=== PATIENT | male | born 1955 | race Caucasian/White ===

== ENCOUNTER 2021-06-02 13:51 | Outpatient (REF) | payer MEDICARE, MEDICAID, SELFPAY ==
--- NOTE | 2021-06-04 09:00 | MHC.AU.ANO ---
Adult Audiological Evaluation Date of Visit: 06/02/21 Reason for Appointment: Patient feels that he hears well overall in most situations, but has started to notice hearing difficulty in a few settings. He has difficulty hearing the television, particularly if he is laying down on his side. He has also noticed difficulty is someone is talking softly/whispering. Ear History: Ear Deformity: None Reported Recent Ear Drainage: None Reported Recent Ear Pain: None Reported Family History of Hearing Loss?: Yes Recent Ear Infections: None Reported Ear Infections in Childhood: None Reported History of Ear Wax Buildup: None Reported Previous Ear Surgery: None Reported Bothersome Tinnitus/Ringing/Noises in Ears: None Reported Ear used on the phone: Right Ear Blocked/Full Sensation in Ear(s): None Reported History of occupational noise exposure?: Yes: [employer]- 20 Years History: No Medical History: Medical History: Hypertension, Deviated Septum Otoscopy: Right Ear: Unremarkable Left Ear: Unremarkable Tympanometry: Tympanometry performed due to: To assess integrity of the middle ear system Right Ear: Normal Middle Ear System (Type A) Left Ear: Normal Middle Ear System (Type A) Hearing Evaluation: Transducer(s) Used: Insert Earphones Method: Conventional Audiometry Stimuli Used: Pure Tones Right Ear: Description of Hearing: Normal from 250-2000 Hz, notch to moderate/moderately-severe sensorineural hearing loss around 4000 Hz, and rising to normal by 8000 Hz Left Ear: Description of Hearing: Normal from 250-2000 Hz, notch to moderate/moderately-severe sensorineural hearing loss around 4000 Hz, and rising to normal by 8000 Hz Speech Recognition Threshold (SRT): Method Used: Recorded Lists Stimuli Used: Spondee Words Right Ear: 10 dBHL Left Ear: 15 dBHL Word Discrimination: Method: Recorded Lists Word Lists Used: W-22 Right Ear: 96% at 55 dBHL Left Ear: 96% at 50 dBHL Most Comfortable Level (MCL): Right Ear: 55 dBHL Left Ear: 50 dBHL Interpretation of Results: Patient presents with a moderate/moderately-severe sensorineural notch around 4000 Hz bilaterally. Notches in this frequency range are commonly seen in individuals who have a history of noise exposure. At this time, the hearing loss likely does not have too strong of an impact on his daily communication, as most frequencies are still within normal range. There may be a few consonant sounds that are more difficult to hear, such as /f/, /s/, and /th/. This can lead to occasional misunderstandings or a feeling that certain sounds do not seem as clear as they used to be. Hearing aids are not yet warranted. Recommendations: Audiological re-evaluation in 2 years, or sooner if changes are noted. Continued use of hearing protection when around loud noises. Diagnosis: Primary Diagnosis: H90.3 Bilateral Sensorineural Hearing Loss Signature: Provider: Alondra Vega, CCC-A
== END 2021-06-02 13:52 | disposition home or self-care (01) ==
LOC: HO.SH 13:51
PROVIDERS: Visit Provider Internal Medicine
DX: H90.3 Sensorineural hearing loss, bilateral (principal)
CPT/HCPCS: 92557; 92567

== ENCOUNTER 2023-08-13 09:34 | Outpatient (REF) | payer MEDICARE, MEDICAID, SELFPAY | END 2023-08-13 09:35 | disposition home or self-care (01) | LOC: HO.SH 09:34 | PROVIDERS: Visit Provider Internal Medicine | DX: Z01.118 Encounter for examination of ears and hearing with other abnormal findings (principal); H90.3 Sensorineural hearing loss, bilateral | CPT/HCPCS: 92552; 92556 ==